=== PATIENT | male | born 1960 | race Caucasian/White ===

== ENCOUNTER 2023-11-04 23:44 | Emergency (ER) | payer MEDICAID ==
[~2023-11-04] VITALS: Ht 172.7 cm; Wt 81.8 kg
[2023-11-04 23:47] VITALS: TEMP 97.6
[2023-11-05] MEDS ORDERED: CHLO25CA10 PO (05:43)
[2023-11-05] MEDS: chlordiazePOXIDE 25mg capsule PO ONE (06:11)
[2023-11-05 06:29] LABS: BASOPHILS % (AUTO) 0.9 % (0-1); EOSINOPHILS # (AUTO) 0.2 X10'3 (0-0.9); EOSINOPHILS % (AUTO) 3.7 % (0-6); HEMATOCRIT 45.3 % (42.0-52.0); HEMOGLOBIN 15.5 g/dl (14.0-17.9); LYMPHOCYTES # (AUTO) 2.5 X10'3 (1.1-4.8); LYMPHOCYTES % (AUTO) 59.7 % (21-51); MEAN CORPUSCULAR HEMOGLOBIN 31.4 PG (27.0-31.0); MEAN CORPUSCULAR HGB CONC 34.1 g/dL (33.0-36.5); MEAN CORPUSCULAR VOLUME 91.9 FL (78-98); MEAN PLATELET VOLUME 8.2 FL (7.4-10.4); MONOCYTES # (AUTO) 0.4 X10'3 (0-0.9); MONOCYTES % (AUTO) 9.2 % (2-12); NEUTROPHILS # (AUTO) 1.1 X10'3 (1.8-7.7); NEUTROPHILS % (AUTO) 26.5 % (42-75); PLATELET COUNT 116 X10'3 (140-440); RED BLOOD COUNT 4.92 X10'6 (4.70-6.10); RED CELL DISTRIBUTION WIDTH 16.1 % (11.5-14.5); WHITE BLOOD COUNT 4.2 X10'3 (4.5-11.0)
[2023-11-05 06:47] LABS: ALBUMIN 3.8 G/DL (3.4-5.0); ANION GAP 11 (8-16); BLOOD UREA NITROGEN 3 MG/DL (7-18); BUN/CREATININE RATIO 4.6 (10.0-20.0); CALCIUM 8.1 MG/DL (8.5-10.1); CHLORIDE 101 MMOL/L (99-107); CREATININE 0.65 MG/DL (0.60-1.10); GLUCOSE 102 MG/DL (70-104); POTASSIUM 3.6 MMOL/L (3.5-5.1); SODIUM 139 MMOL/L (135-145); TOTAL CARBON DIOXIDE 27.1 MMOL/L (24-32); eCRCL 115 ML/MIN; eGFR > 90 ML/MIN
[2023-11-05 06:51] LABS: ETHANOL 316 MG/DL (<10)
[2023-11-05 09:15] VITALS: BP 129/87; PULSE 89; RESP 18; O2SAT 96
== END 2023-11-05 09:57 | disposition home or self-care (01) ==
LOC: ER 23:45
DX: F10.229 Alcohol dependence with intoxication, unspecified (principal); M79.672 Pain in left foot; Y90.9 Presence of alcohol in blood, level not specified; Z79.899 Other long term (current) drug therapy
CPT/HCPCS: 80048; 80320; 82948; 85025; 99283; J7030